=== PATIENT | female | born 1995 | race American Indian/Alaskan Native ===

== ENCOUNTER 2017-12-01 09:14 | Emergency (ER) | payer OTHER ==
[2017-12-01 10:33] VITALS: BP 126/50
[2017-12-01 12:27] LABS: HCG Qualitative,Urine Negative (Negative)
[2017-12-01 12:35] LABS: Bilirubin,Urine NEG (Negative); Blood,Urine LG (Negative); Color,Urine Yellow (Yellow); Mucus,Urine FEW /HPF; Protein,Urine <15 mg/dL mg/dL (Negative); Urobilinogen,Urine < 2.0 mg/dL (<2.0)
[2017-12-01 12:36] LABS: RBC,Urine > 182.0 /HPF (0.0-6.0)
== END 2017-12-01 21:00 | disposition left against medical advice (07) ==
LOC: ED 09:14
DX: N93.9 Abnormal uterine and vaginal bleeding, unspecified (principal); Z53.21 Procedure and treatment not carried out due to patient leaving prior to being seen by health care provider
CPT/HCPCS: 81001; 81025

== ENCOUNTER 2018-02-06 06:07 | Outpatient (CLI) | payer MEDICAID ==
[2018-02-06 08:06] LABS: HCG Qualitative,Urine Negative (Negative)
[2018-02-06 08:10] LABS: Blood Urea Nitrogen 11 mg/dL (7-17)
--- NOTE | 2018-02-06 09:21 | Cat Scan Report ---
CT PELVIS WITH CONTRAST INDICATION: Adnexal mass. COMPARISON: None similar at this institution. FINDINGS: Pelvis CT performed following oral contrast and intravenous administration of 100 cc of Omnipaque 300. Unremarkable urinary bladder. Rectal stool. Uterus and right adnexa/ovary within normal limits. A 4.8 x 3.4 cm left adnexal/ovarian hypodense cyst measures 35 HU, axial image 39, series 4 with questionable subtle dependent density/debris. No calcifications or fat noted in it. No size significant adenopathy or free fluid. Nonobstructive bowel. Ascending colon stool. Partially imaged lumbar levorotoscoliosis. CONCLUSION: 1. Left adnexal/ovarian complex, possibly hemorrhagic cyst, as described. Please also correlate clinically and with prior relevant imaging that may have raised this concern. Sonographic followup in approximately 6 weeks or opposite phase of the menstrual cycle may also be performed to assess for interval change or resolution, as appropriate. 2. Few other findings, as above. Thank you for the opportunity to participate in this patient's care.
== END 2018-02-06 06:08 | disposition home or self-care (01) ==
LOC: CT 06:07
PROVIDERS: ATTEND Obstetrics & Gynecology
DX: N94.9 Unspecified condition associated with female genital organs and menstrual cycle (principal); M41.86 Other forms of scoliosis, lumbar region; N83.202 Unspecified ovarian cyst, left side
CPT/HCPCS: 36415; 72193; 81025; 82565; 84520; Q9967

== ENCOUNTER 2018-03-23 14:17 | Outpatient (CLI) | payer MEDICAID ==
--- NOTE | 2018-03-24 16:57 | Ultrasound Report ---
FINAL REPORT EXAM: US PELVIC COMPLETE HISTORY: Unspecified condition associated with female genital organs and m TECHNIQUE: Transvesical and endovaginal pelvic sonographic imaging was performed Comparison: CT pelvis 02/06/2018 at which time 4.4 x 3.7 centimeter left adnexal cystic lesion was identified and smaller cystic change of the right adnexa was identified FINDINGS: Neutrally verted or mildly retroverted uterus measures 6.8 x 3.8 x 4.2 centimeters. Endometrial stripe is try laminar and measures 13 millimeters. LMP February 2018. Right ovary measures 3.4 x 2.0 x 3.9 centimeters. There are multiple peripheral follicles and normal color flow. Left ovary measures 3.3 x 1.6 x 3.6 centimeters and demonstrates multiple small follicles and a dominant 1.3 x 1.8 centimeter crenated appearing cystic lesion as well as a hypoechoic 1 centimeter complex lesion which may represent a hemorrhagic or resolving functional cyst. No free pelvic fluid. IMPRESSION: Previously identified large left adnexal cyst seen on CT 02/06/2018 is not seen today. Today CT demonstrates a probable hemorrhagic or resolving 1 centimeter functional/crenating cyst and a larger 1.3 x 1.8 centimeter simple appearing but collapsing cyst. Bilateral ovarian follicles. 13 millimeter trilaminar appearing endometrial stripe with a proliferative appearance. Correlate with LMP.
== END 2018-03-23 14:18 | disposition home or self-care (01) ==
LOC: US 14:17
PROVIDERS: ATTEND Obstetrics & Gynecology
DX: N83.02 Follicular cyst of left ovary (principal); N83.01 Follicular cyst of right ovary
CPT/HCPCS: 76830; 76856